=== PATIENT | female | born 1960 | race Caucasian/White ===

== ENCOUNTER 2022-09-02 10:48 | Emergency (ER) | payer OTHER ==
[~2022-09-02] VITALS: Ht 167.6 cm; Wt 52.2 kg
[2022-09-02] MEDS ORDERED: DOXEPIN HCL10 MG PO (11:06)
[2022-09-02] MEDS ORDERED: PANTOPRAZOLE SO20 MG PO (11:06)
[2022-09-02] MEDS ORDERED: ROBAXIN100 MG/1 M INJ (11:06)
[2022-09-02] MEDS ORDERED: VALACYCLOVIR500 MG PO (11:07)
[2022-09-02] MEDS ORDERED: WELLBUTRIN SR150 MG PO (11:07)
[2022-09-02] MEDS ORDERED: DILT-XR120 MG PO (11:07)
[2022-09-02] MEDS ORDERED: NEURONTIN300 MG PO (11:08)
[2022-09-02] MEDS ORDERED: TRAMADOL HCL50 MG PO (12:05)
[2022-09-02] MEDS ORDERED: DOXYCYCLINE HY100 MG PO (12:05)
[2022-09-02] MEDS ORDERED: CARDIZEM CD180 MG PO (12:05)
--- OUTSIDE RECORDS SUMMARY | 2022-09-02 12:31 | XMS ---
PreManage Notification: BENTON LOTT [employer] Events No recent Security Events currently on file CR[facility]IA MET [facility] There are no care providers on record at this time. Surya has no Care Guidelines for this patient. Marita VISIT COUNT (12 MO.) 1 YUNG [place] TOTAL 1 NOTE: Visits indicate total known visits. ED/UCC VISIT TRACKING (12 MO.) 09/02/2022 10:49 [facility] [place] TYPE: Emergency COMPLAINT: - CHEST PAIN INPATIENT VISIT TRACKING (12 MO.) No inpatient visits to display in this time frame [email or web address]
--- NOTE | 2022-09-03 07:30 | EKG ---
[facility] [address] [place], [place] [address] Signed Sinus rhythm with premature supraventricular complexes and with frequent premature ventricular complexes Cannot rule out Anterior infarct , age undetermined Abnormal ECG No previous ECGs available Confirmed by PURVI MATTHEWS MD ([id number]) on 09/03/2022 7:30:42 AM Electronically Signed By: PURVI MATTHEWS MD 09/03/22 0730 PATIENT NAME: BENTON LOTT ARIEL Electrocardiogram DATE OF : 62 PHYSICIAN: PURVI MATTHEWS MD REPORT #: [id number] REPORT IS CONFIDENTIAL AND NOT TO BE RELEASED WITHOUT AUTHORIZATION
== END 2022-09-02 12:45 | disposition home or self-care (01) ==
LOC: ED 10:48
DX: J18.9 Pneumonia, unspecified organism (principal); I49.3 Ventricular premature depolarization; Z88.0 Allergy status to penicillin; Z79.899 Other long term (current) drug therapy
CPT/HCPCS: 36415; 71045; 80053; 84484; 85025; 85379; 87502; 93005; 93010; 96365; 96375; 99285-25; J0696; J1885; J2270; J2405; U0003